=== PATIENT | female | born 1950 | race African-American/Black ===

== ENCOUNTER 2017-02-07 17:02 | Observation (INO) | payer MEDICARE ==
[2017-02-07] MEDS ORDERED: NITROGLYCERIN 50 MG/D5W 250 ML IV PRN (18:23)
[2017-02-07 18:39] LABS: ABSOLUTE EOSINOPHILS # (AUTO) 0.1 10^3/uL (0.0-0.6); ABSOLUTE LYMPHOCYTES (AUTO) 3.9 10^3/uL (0.5-4.7); ABSOLUTE MONOCYTES (AUTO) 0.7 10^3/uL (0.1-1.4); ABSOLUTE NEUT (AUTO) 4.8 10^3/uL (1.7-8.2); BASOPHILS % (AUTO) 0.4 % (0-2); EOSINOPHILS % (AUTO) 1.4 % (0-6); HEMATOCRIT 44.5 % (36.0-47.0); HEMOGLOBIN 14.6 g/dL (12.0-15.5); HGB HCT DIFFERENCE -0.7; LYMPHOCYTES % (AUTO) 40.9 % (13-45); MEAN CORPUSCULAR HEMOGLOBIN 33.4 pg (27.0-33.4); MEAN CORPUSCULAR HGB CONC 32.8 g/dL (32.0-36.0); MEAN CORPUSCULAR VOLUME 102 fl (80-97); RED BLOOD COUNT 4.36 10^6/uL (3.72-5.28); RED CELL DISTRIBUTION WIDTH 13.1 % (11.5-14.0); SEGMENTED NEUTROPHILS % (AUTO) 50.3 % (42-78); WHITE BLOOD COUNT 9.5 10^3/uL (4.0-10.5)
[2017-02-07 18:53] LABS: ALANINE AMINOTRANSFERASE 22 U/L (9-52); ALBUMIN 4.7 g/dL (3.5-5.0); ALKALINE PHOSPHATASE 82 U/L (38-126); ANION GAP 13 (5-19); ASPARTATE AMINO TRANSFERASE 33 U/L (14-36); BILIRUBIN,DIRECT 0.3 mg/dL (0.0-0.4); BILIRUBIN,TOTAL 0.5 mg/dL (0.2-1.3); BLOOD UREA NITROGEN 33 mg/dL (7-20); CALCIUM 10.2 mg/dL (8.4-10.2); CARBON DIOXIDE 28 mmol/L (22-30); CHLORIDE 105 mmol/L (98-107); CREATININE RESULT 1.42 mg/dL (0.52-1.25); GLUCOSE 106 mg/dL (75-110); POTASSIUM 4.1 mmol/L (3.6-5.0); TOTAL PROTEIN 8.7 g/dL (6.3-8.2)
--- NOTE | 2017-02-07 18:58 | RADIOLOGY REPORT (SQ) ---
EXAM DESCRIPTION: CT HEAD WITHOUT COMPLETED DATE/TIME: 02/07/2017 6:36 pm REASON FOR STUDY: hypertense emergency COMPARISON: None. TECHNIQUE: Axial images acquired through the brain without intravenous contrast. Images reviewed wi th bone, brain and subdural windows. Images stored on PACS. All CT scanners at this facility use dose modulation, iterative reconstruction, and/or weight based d osing when appropriate to reduce radiation dose to as low as reasonably achievable (ALARA). [facility]: Dose Right [facility]: CareDose [facility]: Dose Right [facility]: Teradose 4D [facility]: [employer] RADIATION DOSE: 64.61 mGy. LIMITATIONS: None. FINDINGS: VENTRICLES: Normal size and contour. CEREBRUM: No masses. No hemorrhage. No midline shift. Normal siddiqui/white matter differentiation. N o evidence for acute infarction. CEREBELLUM: No masses. No hemorrhage. No alteration of density. No evidence for acute infarction. EXTRAAXIAL SPACES: No fluid collections. No masses. ORBITS AND GLOBE: No intra- or extraconal masses. Normal contour of globe without masses. CALVARIUM: No fracture. PARANASAL SINUSES: No fluid or mucosal thickening. SOFT TISSUES: No mass or hematoma. OTHER: No other significant finding. IMPRESSION: NORMAL BRAIN CT WITHOUT CONTRAST. TECHNICAL DOCUMENTATION: JOB ID: [id number] Quality ID # [id number]: Final reports with documentation of one or more dose reduction techniques (e.g., Au tomated exposure control, adjustment of the mA and/or kV according to patient size, use of iterative reconstruction technique) 2010 [employer]- All Rights Reserved
--- NOTE | 2017-02-07 22:32 | RADIOLOGY REPORT (SQ) ---
EXAM DESCRIPTION: U/S RETROPERITON LTD COMPLETED DATE/TIME: 02/07/2017 10:17 pm REASON FOR STUDY: acute kidney injury COMPARISON: None. TECHNIQUE: Dynamic and static grayscale images acquired of the kidneys and bladder and recorded on P ACS. Additional selected color Doppler and spectral images recorded. LIMITATIONS: None. FINDINGS: RIGHT KIDNEY: The right kidney measures 8.9 cm in length. Normal echogenicity. No yue id or suspicious masses. No hydronephrosis. No calcifications. LEFT KIDNEY: The left kidney measures 9.3 cm in length. Normal echogenicity. No solid or suspici ous masses. No hydronephrosis. No calcifications. BLADDER: No masses. OTHER FINDINGS: No other significant finding. IMPRESSION: NORMAL RENAL AND BLADDER ULTRASOUND. TECHNICAL DOCUMENTATION: JOB ID: [id number] [employer]- All Rights Reserved
[2017-02-07] MEDS ORDERED: CLONAZEPAM 1 MG TABLET PO ONE (23:00)
[2017-02-07] MEDS ORDERED: FAMOTIDINE 20 MG TABLET PO ONE (23:00)
[2017-02-07] MEDS ORDERED: METOPROLOL TARTRATE 50 MG TABLET PO ONE (23:00)
[2017-02-07] MEDS: OXYCODONE-ACETAMINOPHEN 5-325 MG TABLET PO PRN (23:54)
[2017-02-08 00:45] LABS: APPEARANCE,URINE CLEAR; BILIRUBIN,URINE NEGATIVE (NEGATIVE); GLUCOSE, URINE NEGATIVE (NEGATIVE); KETONES,URINE NEGATIVE (NEGATIVE); LEUKOCYTE ESTERASE,URINE NEGATIVE (NEGATIVE); NITRITE,URINE NEGATIVE (NEGATIVE); PROTEIN,URINE NEGATIVE (NEGATIVE); URINE SPECIFIC GRAVITY 1.008; UROBILINOGEN,URINE NEGATIVE mg/dL (<2.0)
[2017-02-08 01:16] LABS: URINE CREATININE 27.1 mg/dL (15-278); URINE PROTEIN 10.4 mg/dL (<12)
[2017-02-08 08:14] LABS: ANION GAP 11 (5-19); BLOOD UREA NITROGEN 30 mg/dL (7-20); CALCIUM 9.7 mg/dL (8.4-10.2); CARBON DIOXIDE 31 mmol/L (22-30); CHLORIDE 106 mmol/L (98-107); GLUCOSE 89 mg/dL (75-110); POTASSIUM 4.3 mmol/L (3.6-5.0); SODIUM 147.6 mmol/L (137-145)
--- NOTE | 2017-02-08 09:11 | EKG REPORT ---
SEVERITY:- NORMAL ECG - SINUS RHYTHM : Confirmed by: Huma Marinelli MD 08-Feb-2017 09:10:23
[2017-02-08] MEDS: OXYCODONE-ACETAMINOPHEN 5-325 MG TABLET PO PRN (09:53)
[2017-02-08] MEDS ORDERED: LORATADINE 10 MG TABLET PO SCH (10:00)
[2017-02-08] MEDS ORDERED: CLONAZEPAM 1 MG TABLET PO SCH (10:00)
[2017-02-08] MEDS ORDERED: FUROSEMIDE 40 MG TABLET PO SCH (10:00)
[2017-02-08] MEDS ORDERED: PAROXETINE HCL 20 MG TABLET PO SCH (10:00)
[2017-02-08] MEDS ORDERED: LEVOTHYROXINE SODIUM 0.075 MG TABLET PO SCH (10:00)
[2017-02-08] MEDS ORDERED: VALSARTAN 160 MG TABLET PO SCH (10:00)
[2017-02-08] MEDS ORDERED: METOPROLOL TARTRATE 50 MG TABLET PO SCH (10:00)
[2017-02-08 12:46] VITALS: BP 120/60
[2017-02-08] MEDS ORDERED: BUTALB/ACETAMINOPHEN/CAFFEINE 1 TAB EACH PO PRN (14:28)
--- NOTE | 2017-02-08 15:36 | PDOC H&P ---
History of Present Illness Admission Date/PCP: 02/07/17 17:02 YUKO DUMONT MD History of Present Illness: HENRIQUE OSULLIVAN is a 66 year old female, she has a history of hypertension, she came to the office with multiple complaints including headache, uncontrolled blood pressure, she was evaluated in the office, the blood pressure recorded was 180 systolic. When she arrived in the office, the initial blood pressure recorded was 160 systolic but the blood pressure increased to 180 systolic in about 60 minutes duration, because of the blood pressure ,headache she was admitted directly for evaluation of hypertensive emergency. CT of the head was done and it was negative. The metabolic panel showed serum creatinine of 1.42 there was associated hyperproteinemia. When patient arrived on the floor the blood pressure actually dropped to 140 systolic. She did not require intravenous antihypertensive medication. She was treated with p.o. medication for the control blood pressure. The repeat Metabolic panel revealed serum creatinine 1.2. The kidney ultrasound was normal. There is no hydronephrosis, the kidney size was normal. Past Medical History Cardiac Medical History: Reports: Hypertension - medicated Pulmonary Medical History: Reports: Asthma - last episode december 2013 in [place]/ medicated prn Past Surgical History Past Surgical History: Reports: Hysterectomy Social History Smoking Status: Never Smoker Frequency of Alcohol Use: None Hx Recreational Drug Use: No Drugs: None Hx Prescription Drug Abuse: No Family History Family History: Reviewed & Not Pertinent Parental Family History Reviewed: Yes Children Family History Reviewed: Yes Sibling(s) Family History Reviewed.: Yes Medication/Allergy Home Medications: Clonazepam [Klonopin] 0.5 mg PO Q12 02/07/17 Furosemide [Lasix] 40 mg PO DAILY 02/07/17 Levothyroxine Sodium [Synthroid 0.075 mg Tablet] 0.075 mg PO ACBRKFST 02/07/17 Loratadine [Claritin 10 mg Tablet] 10 mg PO DAILY 02/07/17 Metoprolol Tartrate [Lopressor 50 mg Tablet] 50 mg PO Q12 02/07/17 Oxycodone HCl/Acetaminophen [Endocet 5-325 Tablet] 1 tab PO Q6HP PRN 02/07/17 Paroxetine HCl [Paxil] 10 mg PO DAILY 02/07/17 Ranitidine HCl [Zantac 150 mg Tablet] 150 mg PO BID 02/07/17 Valsartan [Diovan 160 mg Tablet] 160 mg PO DAILY 02/07/17 Butalb/Acetaminophen/Caffeine [Fioricet (50-325-40 mg) Tablet] 1 tab PO Q4HP PRN #60 each 02/08/17 Allergies/Adverse Reactions: milnacipran HCl [From Savella] Allergy (Intermediate, Verified 04/09/14 15:25) elevated bp ofloxacin [From Floxin] Allergy (Verified 04/15/14 08:53) sulfur [From Sulfur-8] Adverse Reaction (Unverified 04/09/14 15:25) G6PD blood disorder Review of Systems Constitutional: PRESENT: headache(s) Cardiovascular: ABSENT: chest pain, dyspnea on exertion, edema, orthropnea, palpitations Respiratory: ABSENT: cough, hemoptysis Gastrointestinal: ABSENT: abdominal pain, constipation, diarrhea, hematemesis, hematochezia, nausea, vomiting Genitourinary: ABSENT: dysuria, hematuria Musculoskeletal: ABSENT: joint swelling Integumentary: ABSENT: rash, wounds Neurological: ABSENT: abnormal gait, abnormal speech, confusion, dizziness, focal weakness, syncope Psychiatric: PRESENT: anxiety Hematologic/Lymphatic: ABSENT: easy bleeding, easy bruising, lymphadenopathy Physical Exam Vital Signs: Temp Pulse Resp BP Pulse Ox 98.2 F 71 18 120/60 95 02/08/17 14:52 02/08/17 14:52 02/08/17 14:52 02/08/17 14:52 02/08/17 14:52 Intake & Output 02/07/17 02/08/17 02/09/17 06:59 06:59 06:59 Intake Total 400 238 Output Total 600 800 Balance -200 -562 Weight 80.5 kg General appearance: PRESENT: no acute distress, well-developed, well-nourished Head exam: PRESENT: atraumatic, normocephalic Eye exam: PRESENT: conjunctiva pink, EOMI, PERRLA Ear exam: PRESENT: normal external ear exam Mouth exam: PRESENT: moist, tongue midline Neck exam: PRESENT: full ROM Respiratory exam: PRESENT: clear to auscultation seth Cardiovascular exam: PRESENT: RRR, +S1, +S2 Vascular exam: PRESENT: normal capillary refill GI/Abdominal exam: PRESENT: normal bowel sounds, soft Rectal exam: PRESENT: deferred Neurological exam: PRESENT: alert, awake, oriented to person, oriented to place , oriented to time, oriented to situation, CN II-XII grossly intact Psychiatric exam: PRESENT: appropriate affect, normal mood Skin exam: PRESENT: dry, intact, warm Results Laboratory Results: 02/07/17 18:25 02/08/17 07:54 02/07/17 02/07/17 02/07/17 18:25 18:25 23:50 WBC 9.5 RBC 4.36 Hgb 14.6 Hct 44.5 MCV 102 H MCH 33.4 MCHC 32.8 RDW 13.1 Plt Count 237 Seg Neutrophils % 50.3 Lymphocytes % 40.9 Monocytes % 7.0 Eosinophils % 1.4 Basophils % 0.4 Absolute Neutrophils 4.8 Absolute Lymphocytes 3.9 Absolute Monocytes 0.7 Absolute Eosinophils 0.1 Absolute Basophils 0.0 Sodium 146.0 H Potassium 4.1 Chloride 105 Carbon Dioxide 28 Anion Gap 13 BUN 33 H Creatinine 1.42 H Est GFR ( Amer) 45 L Est GFR (Non-Af Amer) 37 L Glucose 106 Calcium 10.2 Total Bilirubin 0.5 AST 33 ALT 22 Alkaline Phosphatase 82 Total Protein 8.7 H Albumin 4.7 Urine Color STRAW Urine Appearance CLEAR Urine pH 5.0 Ur Specific [place] 1.008 Urine Protein NEGATIVE Urine Glucose (UA) NEGATIVE Urine Ketones NEGATIVE Urine Blood NEGATIVE Urine Nitrite NEGATIVE Ur Leukocyte Esterase NEGATIVE Urine WBC (Auto) 1 Urine RBC (Auto) 0 02/08/17 07:54 WBC RBC Hgb Hct MCV MCH MCHC RDW Plt Count Seg Neutrophils % Lymphocytes % Monocytes % Eosinophils % Basophils % Absolute Neutrophils Absolute Lymphocytes Absolute Monocytes Absolute Eosinophils Absolute Basophils Sodium 147.6 H Potassium 4.3 Chloride 106 Carbon Dioxide 31 H Anion Gap 11 BUN 30 H Creatinine 1.20 Est GFR ( Amer) 54 L Est GFR (Non-Af Amer) 45 L Glucose 89 Calcium 9.7 Total Bilirubin AST ALT Alkaline Phosphatase Total Protein Albumin Urine Color Urine Appearance Urine pH Ur Specific [place] Urine Protein Urine Glucose (UA) Urine Ketones Urine Blood Urine Nitrite Ur Leukocyte Esterase Urine WBC (Auto) Urine RBC (Auto) Impressions: Head CT 02/07/17 00:00 IMPRESSION: NORMAL BRAIN CT WITHOUT CONTRAST. Renal Ultrasound 02/07/17 00:00 IMPRESSION: NORMAL RENAL AND BLADDER ULTRASOUND. Assessment & Plan - Diagnosis (1) Hypertensive urgency Is this a current diagnosis for this admission?: YesPlan: She was admitted for observation for evaluation of hypertensive urgency, CT head was negative. she was treated with PO medications with normalization of the blood pressure (2) Acute kidney injury Is this a current diagnosis for this admission?: YesPlan: The serum creatinine was 1.4 on admission, kidney ultrasound was normal subsequent serum creatinine was 1.2 the urinalysis is negative
--- NOTE | 2017-02-08 15:43 | PDOC DISCHARGE SUMMARY ---
General - Admit/Disc Date/PCP Admission Date/Primary Care Provider: 02/07/17 17:02 YUKO DUMONT MD Discharge Date: 02/08/17 - Discharge Diagnosis (1) Hypertensive urgency Is this a current diagnosis for this admission?: Yes (2) Acute kidney injury Is this a current diagnosis for this admission?: Yes - Additional Information Discharge Activity: Activity As Tolerated Home Medications: Clonazepam [Klonopin] 0.5 mg PO Q12 02/07/17 Furosemide [Lasix] 40 mg PO DAILY 02/07/17 Levothyroxine Sodium [Synthroid 0.075 mg Tablet] 0.075 mg PO ACBRKFST 02/07/17 Loratadine [Claritin 10 mg Tablet] 10 mg PO DAILY 02/07/17 Metoprolol Tartrate [Lopressor 50 mg Tablet] 50 mg PO Q12 02/07/17 Oxycodone HCl/Acetaminophen [Endocet 5-325 Tablet] 1 tab PO Q6HP PRN 02/07/17 Paroxetine HCl [Paxil] 10 mg PO DAILY 02/07/17 Ranitidine HCl [Zantac 150 mg Tablet] 150 mg PO BID 02/07/17 Valsartan [Diovan 160 mg Tablet] 160 mg PO DAILY 02/07/17 Butalb/Acetaminophen/Caffeine [Fioricet (50-325-40 mg) Tablet] 1 tab PO Q4HP PRN #60 each 02/08/17 History of Present Illness History of Present Illness: HENRIQUE OSULLIVAN is a 66 year old female, she has a history of hypertension, she came to the office with multiple complaints including headache, uncontrolled blood pressure, she was evaluated in the office, the blood pressure recorded was 180 systolic. When she arrived in the office, the initial blood pressure recorded was 160 systolic but the blood pressure increased to 180 systolic in about 60 minutes duration, because of the blood pressure ,headache she was admitted directly for evaluation of hypertensive emergency. CT of the head was done and it was negative. The metabolic panel showed serum creatinine of 1.42 there was associated hyperproteinemia. When patient arrived on the floor the blood pressure actually dropped to 140 systolic. She did not require intravenous antihypertensive medication. She was treated with p.o. medication for the control blood pressure. The repeat Metabolic panel revealed serum creatinine 1.2. The kidney ultrasound was normal. There is no hydronephrosis, the kidney size was normal. Hospital Course Hospital Course: Patient was admitted for evaluation of hypertensive urgency, CT head was done and it was negative there was associated acute kidney injury with a serum creatinine 1.4, ultrasound was done and was negative subsequent metabolic panel done revealed serum creatinine 1.2. urinalysis was Negative. Physical Exam Vital Signs: Temp Pulse Resp BP Pulse Ox 98.2 F 71 18 120/60 95 02/08/17 14:52 02/08/17 14:52 02/08/17 14:52 02/08/17 14:52 02/08/17 14:52 Intake & Output 02/07/17 02/08/17 02/09/17 06:59 06:59 06:59 Intake Total 400 238 Output Total 600 800 Balance -200 -562 Weight 80.5 kg General appearance: PRESENT: no acute distress, well-developed, well-nourished Head exam: PRESENT: atraumatic, normocephalic Eye exam: PRESENT: conjunctiva pink, EOMI, PERRLA Ear exam: PRESENT: normal external ear exam Mouth exam: PRESENT: moist, tongue midline Neck exam: PRESENT: full ROM Respiratory exam: PRESENT: clear to auscultation seth Cardiovascular exam: PRESENT: RRR, +S1, +S2 Pulses: PRESENT: normal dorsalis pedis pul, +2 pedal pulses bilateral Vascular exam: PRESENT: normal capillary refill GI/Abdominal exam: PRESENT: normal bowel sounds, soft Rectal exam: PRESENT: deferred Neurological exam: PRESENT: alert, awake, oriented to person, oriented to place , oriented to time, oriented to situation, CN II-XII grossly intact Psychiatric exam: PRESENT: appropriate affect, normal mood Skin exam: PRESENT: dry, intact, warm Results Laboratory Results: 02/07/17 18:25 02/08/17 07:54 02/07/17 02/07/17 02/07/17 18:25 18:25 23:50 WBC 9.5 RBC 4.36 Hgb 14.6 Hct 44.5 MCV 102 H MCH 33.4 MCHC 32.8 RDW 13.1 Plt Count 237 Seg Neutrophils % 50.3 Lymphocytes % 40.9 Monocytes % 7.0 Eosinophils % 1.4 Basophils % 0.4 Absolute Neutrophils 4.8 Absolute Lymphocytes 3.9 Absolute Monocytes 0.7 Absolute Eosinophils 0.1 Absolute Basophils 0.0 Sodium 146.0 H Potassium 4.1 Chloride 105 Carbon Dioxide 28 Anion Gap 13 BUN 33 H Creatinine 1.42 H Est GFR ( Amer) 45 L Est GFR (Non-Af Amer) 37 L Glucose 106 Calcium 10.2 Total Bilirubin 0.5 AST 33 ALT 22 Alkaline Phosphatase 82 Total Protein 8.7 H Albumin 4.7 Urine Color STRAW Urine Appearance CLEAR Urine pH 5.0 Ur Specific [place] 1.008 Urine Protein NEGATIVE Urine Glucose (UA) NEGATIVE Urine Ketones NEGATIVE Urine Blood NEGATIVE Urine Nitrite NEGATIVE Ur Leukocyte Esterase NEGATIVE Urine WBC (Auto) 1 Urine RBC (Auto) 0 02/08/17 07:54 WBC RBC Hgb Hct MCV MCH MCHC RDW Plt Count Seg Neutrophils % Lymphocytes % Monocytes % Eosinophils % Basophils % Absolute Neutrophils Absolute Lymphocytes Absolute Monocytes Absolute Eosinophils Absolute Basophils Sodium 147.6 H Potassium 4.3 Chloride 106 Carbon Dioxide 31 H Anion Gap 11 BUN 30 H Creatinine 1.20 Est GFR ( Amer) 54 L Est GFR (Non-Af Amer) 45 L Glucose 89 Calcium 9.7 Total Bilirubin AST ALT Alkaline Phosphatase Total Protein Albumin Urine Color Urine Appearance Urine pH Ur Specific [place] Urine Protein Urine Glucose (UA) Urine Ketones Urine Blood Urine Nitrite Ur Leukocyte Esterase Urine WBC (Auto) Urine RBC (Auto) Impressions: Head CT 02/07/17 00:00 IMPRESSION: NORMAL BRAIN CT WITHOUT CONTRAST. Renal Ultrasound 02/07/17 00:00 IMPRESSION: NORMAL RENAL AND BLADDER ULTRASOUND.
[2017-02-08] MEDS ORDERED: FAMOTIDINE 20 MG TABLET PO SCH (18:00)
[2017-02-08] MEDS ORDERED: (PENDING PHARMACY ID) (Ranitidine Hcl [Zantac 150 Mg Tablet] 150 MG) PO SCH (18:00)
[2017-02-09 16:39] LABS: ALPHA-1-GLOBULIN 0.3 g/dL (0.0-0.4); ALPHA-2-GLOBULIN 3 0.6 g/dL (0.4-1.0); BETA GLOBULIN 1.2 g/dL (0.7-1.3); IMMUNOGLOBULIN A 284 mg/dL (87-352); IMMUNOGLOBULIN G 954 mg/dL (700-1600); IMMUNOGLOBULIN M 40 mg/dL (26-217); MONOCLONAL-SPIKE Not Observed g/dL (Not Observed)
[2017-02-10 14:41] LABS: M-SPIKE % UR Not Observed % (Not Observed)
== END 2017-02-08 15:39 | disposition home or self-care (01) ==
LOC: 3N 17:02 → INTOOBSV 17:02
PROVIDERS: ADMIT Internal Medicine; ATTEND Internal Medicine
DX: I16.0 Hypertensive urgency (principal); N17.9 Acute kidney failure, unspecified; E88.09 Other disorders of plasma-protein metabolism, not elsewhere classified; F41.9 Anxiety disorder, unspecified; Z79.899 Other long term (current) drug therapy; Z90.710 Acquired absence of both cervix and uterus
CPT/HCPCS: 36415 ×2; 84156; 82570; 85025; 80076; 80048 ×2; 81001; 86320; 84166; 76775; 70450; 93005; 93010; G0378 ×2; G0379; A9270 ×10; J3490

== ENCOUNTER 2017-08-18 10:53 | Observation (INO) | payer MEDICARE ==
[2017-08-18 13:30] LABS: ABSOLUTE BASOPHILS # (AUTO) 0.1 10^3/uL (0.0-0.2); ABSOLUTE EOSINOPHILS # (AUTO) 0.1 10^3/uL (0.0-0.6); ABSOLUTE LYMPHOCYTES (AUTO) 2.5 10^3/uL (0.5-4.7); ABSOLUTE MONOCYTES (AUTO) 0.6 10^3/uL (0.1-1.4); ABSOLUTE NEUT (AUTO) 4.7 10^3/uL (1.7-8.2); EOSINOPHILS % (AUTO) 1.5 % (0-6); HEMATOCRIT 42.1 % (36.0-47.0); HEMOGLOBIN 14.6 g/dL (12.0-15.5); LYMPHOCYTES % (AUTO) 31.3 % (13-45); MEAN CORPUSCULAR HEMOGLOBIN 34.3 pg (27.0-33.4); MEAN CORPUSCULAR HGB CONC 34.7 g/dL (32.0-36.0); MEAN CORPUSCULAR VOLUME 99 fl (80-97); MONOCYTES % (AUTO) 7.9 % (3-13); PLATELET COUNT 256 10^3/uL (150-450); RED BLOOD COUNT 4.26 10^6/uL (3.72-5.28); RED CELL DISTRIBUTION WIDTH 12.7 % (11.5-14.0); SEGMENTED NEUTROPHILS % (AUTO) 58.3 % (42-78); TOTAL CELLS COUNTED % (AUTO) 100 %
--- NOTE | 2017-08-18 13:37 | EKG REPORT ---
SEVERITY:- NORMAL ECG - SINUS RHYTHM : Confirmed by: Mulu Ventura 18-Aug-2017 13:36:43
[2017-08-18] MEDS ORDERED: ACETAMINOPHEN 325 MG TABLET PO PRN (13:48)
[2017-08-18 13:55] LABS: ALANINE AMINOTRANSFERASE 28 U/L (9-52); ALBUMIN 4.6 g/dL (3.5-5.0); ALKALINE PHOSPHATASE 84 U/L (38-126); ANION GAP 13 (5-19); ASPARTATE AMINO TRANSFERASE 35 U/L (14-36); BILIRUBIN,DIRECT 0.2 mg/dL (0.0-0.4); BILIRUBIN,TOTAL 0.4 mg/dL (0.2-1.3); BLOOD UREA NITROGEN 19 mg/dL (7-20); CARBON DIOXIDE 30 mmol/L (22-30); CHLORIDE 105 mmol/L (98-107); CREATINE KINASE 57 U/L (30-135); GLUCOSE 92 mg/dL (75-110); LIPASE 101.7 U/L (23-300); POTASSIUM 4.2 mmol/L (3.6-5.0); SODIUM 148.3 mmol/L (137-145); TOTAL PROTEIN 7.8 g/dL (6.3-8.2)
[2017-08-18 14:06] LABS: CREATINE KINASE MB 0.58 ng/mL (<4.55)
[2017-08-18 14:09] LABS: TROPONIN I < 0.012 ng/mL
[2017-08-18 14:10] LABS: FREE T4 (FREE THYROXINE) 1.63 ng/dL (0.78-2.19)
[2017-08-18 14:24] LABS: THYROID STIMULATING HORMONE 0.15 uIU/mL (0.47-4.68)
--- NOTE | 2017-08-18 16:14 | RADIOLOGY REPORT (SQ) ---
EXAM DESCRIPTION: CTA CHEST COMPLETED DATE/TIME: 08/18/2017 3:58 pm REASON FOR STUDY: chest pain COMPARISON: Chest x-ray 07/26/2013 TECHNIQUE: CT scan of the chest performed using helical scanning technique with dynamic intravenous contrast injection. Images reviewed with lung, soft tissue and bone windows. Reconstructed coronal and sagittal MPR images reviewed. Additional 3 dimensional post-processing performed to develop Maximal Intensity Projection images (IN P). All images stored on PACS. All CT scanners at this facility use dose modulation, iterative reconstruction, and/or weight based d osing when appropriate to reduce radiation dose to as low as reasonably achievable (ALARA). [facility]: Dose Right [facility]: CareDose [facility]: Dose Right [facility]: Teradose 4D [facility]: [employer] CONTRAST TYPE AND DOSE: contrast/concentration: Isovue 370.00 mg/ml; Total Contrast Delivered: 67.0 ml; Total Saline Delivered: 81.2 ml Contrast bolus optimized for the pulmonary arteries. Not diagnostic for the aorta. RENAL FUNCTION: Creatinine 1.04 BUN 19 RADIATION DOSE: CT Rad equipment meets quality standard of care and radiation dose reduction techniq ues were employed. CTDIvol: 10.7 - 11.3 mGy. DLP: 392 mGy-cm. . LIMITATIONS: None. FINDINGS: LUNGS AND PLEURA: There is a 7 mm somewhat of a ground-glass opacity in the medial right l lorna image 24 series 4. AORTA AND GREAT VESSELS: No aneurysm. Contrast bolus not optimized for the aorta. HEART: No pericardial effusion. No significant coronary artery calcifications. PULMONARY ARTERIES: No emboli visualized in the main pulmonary arteries or the segmental branches. HILAR AND MEDIASTINAL STRUCTURES: No identified masses or abnormal nodes. HARDWARE: None in the chest. UPPER ABDOMEN: No significant findings. Limited exam. THYROID AND OTHER SOFT TISSUES: No masses. No adenopathy. BONES: No acute or significant finding. 3D MIPS: Confirm above findings. OTHER: No other significant finding. IMPRESSION: 1. There is no evidence of pulmonary embolus. 2. There is 7 mm ground-glass nodule the right lung. COMMENT: Fleischner Criteria for Ground Glass Nodules: >6mm ground glass single nodule: CT 6-12 mo, then CT every 2 yr until 5 yr Quality ID # [id number]: Final reports with documentation of one or more dose reduction techniques (e.g., Au tomated exposure control, adjustment of the mA and/or kV according to patient size, use of iterative reconstruction technique) TECHNICAL DOCUMENTATION: JOB ID: [id number] [employer]- All Rights Reserved
[2017-08-18 16:59] LABS: APPEARANCE,URINE CLEAR; BILIRUBIN,URINE NEGATIVE (NEGATIVE); COLOR,URINE YELLOW; GLUCOSE, URINE NEGATIVE (NEGATIVE); KETONES,URINE NEGATIVE (NEGATIVE); LEUKOCYTE ESTERASE,URINE NEGATIVE (NEGATIVE); NITRITE,URINE NEGATIVE (NEGATIVE); PROTEIN,URINE NEGATIVE (NEGATIVE); URINE SPECIFIC GRAVITY 1.018; UROBILINOGEN,URINE NEGATIVE mg/dL (<2.0)
[2017-08-18 18:43] VITALS: BP 142/75
--- NOTE | 2017-08-18 20:33 | PDOC H&P ---
History of Present Illness Admission Date/PCP: 08/18/17 10:53 YUKO DUMONT MD History of Present Illness: HENRIQUE OSULLIVAN is a 66 year old female, She came to the office today for follow -up she complained of intermittent chest pain, she said about 3 weeks ago she traveled outside [place], she developed acute respiratory distress, with shortness of breath, wheezing and there was associated lower extremity swelling , she took pictures of her legs and she showed me the pictures in the office today. There was tremendous swelling of both lower extremities. A 12-lead EKG was done in the office, it showed sinus rhythm, there was nonspecific T- wave changes, some flattening of the T waves. She was admitted directly from the office into the hospital for evaluation because of chest pain and abnormal EKG. In the hospital a CTA of the chest was done, it was negative for any acute pulmonary embolism there was no aneurysm of the aorta. The first set of cardiac enzymes were negative.She was admitted for observation and evaluation Past Medical History Cardiac Medical History: Reports: Hypertension - medicated Pulmonary Medical History: Reports: Asthma - last episode december 2013 in [place]/ medicated prn Neurological Medical History: Denies: Seizures Psychiatric Medical History: Denies: Depression Past Surgical History Past Surgical History: Reports: Hysterectomy Denies: Amputation, Mastectomy, Pacemaker Social History Smoking Status: Former Smoker Frequency of Alcohol Use: None Hx Recreational Drug Use: No Drugs: None Hx Prescription Drug Abuse: No Family History Family History: Reviewed & Not Pertinent Parental Family History Reviewed: Yes Children Family History Reviewed: Yes Sibling(s) Family History Reviewed.: Yes Medication/Allergy Home Medications: Clonazepam [Klonopin] 0.5 mg PO Q12 02/07/17 Furosemide [Lasix] 40 mg PO DAILY 02/07/17 Levothyroxine Sodium [Synthroid 0.075 mg Tablet] 0.075 mg PO ACBRKFST 02/07/17 Loratadine [Claritin 10 mg Tablet] 10 mg PO DAILY 02/07/17 Metoprolol Tartrate [Lopressor 50 mg Tablet] 50 mg PO Q12 02/07/17 Oxycodone HCl/Acetaminophen [Endocet 5-325 Tablet] 1 tab PO Q6HP PRN 02/07/17 Paroxetine HCl [Paxil] 10 mg PO DAILY 02/07/17 Ranitidine HCl [Zantac 150 mg Tablet] 150 mg PO BID 02/07/17 Valsartan [Diovan 160 mg Tablet] 160 mg PO DAILY 02/07/17 Butalb/Acetaminophen/Caffeine [Fioricet (50-325-40 mg) Tablet] 1 tab PO Q4HP PRN #60 each 02/08/17 Allergies/Adverse Reactions: milnacipran HCl [From Savella] Allergy (Intermediate, Verified 04/09/14 15:25) elevated bp ofloxacin [From Floxin] Allergy (Verified 04/15/14 08:53) sulfur [From Sulfur-8] Adverse Reaction (Unverified 04/09/14 15:25) G6PD blood disorder Review of Systems Constitutional: ABSENT: chills, fever(s), headache(s), weight gain, weight loss Eyes: ABSENT: visual disturbances Ears: ABSENT: hearing changes Cardiovascular: PRESENT: chest pain Respiratory: ABSENT: cough, hemoptysis Gastrointestinal: ABSENT: abdominal pain, constipation, diarrhea, hematemesis, hematochezia, nausea, vomiting Genitourinary: ABSENT: dysuria, hematuria Musculoskeletal: ABSENT: joint swelling Integumentary: ABSENT: rash, wounds Neurological: ABSENT: abnormal gait, abnormal speech, confusion, dizziness, focal weakness, syncope Psychiatric: ABSENT: anxiety, depression, homidical ideation, suicidal ideation Endocrine: ABSENT: cold intolerance, heat intolerance, menstrual abnormalities, polydipsia, polyuria Hematologic/Lymphatic: ABSENT: easy bleeding, easy bruising, lymphadenopathy Physical Exam Vital Signs: Temp Pulse Resp BP Pulse Ox 98.3 F 76 18 142/75 H 99 08/18/17 18:41 08/18/17 18:41 08/18/17 18:41 08/18/17 18:41 08/18/17 18:41 Intake & Output 08/17/17 08/18/17 08/19/17 06:59 06:59 06:59 Intake Total 232 Output Total 600 Balance -368 Weight 81.4 kg General appearance: PRESENT: no acute distress, well-developed, well-nourished Head exam: PRESENT: atraumatic, normocephalic Eye exam: PRESENT: conjunctiva pink, EOMI, PERRLA. ABSENT: scleral icterus Ear exam: PRESENT: normal external ear exam Mouth exam: PRESENT: moist, tongue midline Neck exam: PRESENT: full ROM Respiratory exam: PRESENT: clear to auscultation seth Cardiovascular exam: PRESENT: RRR, +S1, +S2 Pulses: PRESENT: normal dorsalis pedis pul, +2 pedal pulses bilateral Vascular exam: PRESENT: normal capillary refill GI/Abdominal exam: PRESENT: normal bowel sounds, soft Rectal exam: PRESENT: deferred Neurological exam: PRESENT: alert, awake, oriented to person, oriented to place , oriented to time, oriented to situation, CN II-XII grossly intact Psychiatric exam: PRESENT: appropriate affect, normal mood Skin exam: PRESENT: dry, intact, warm Results Laboratory Results: 08/18/17 13:13 08/18/17 13:13 08/18/17 08/18/17 08/18/17 13:13 13:13 13:13 WBC 8.0 RBC 4.26 Hgb 14.6 Hct 42.1 MCV 99 H MCH 34.3 H MCHC 34.7 RDW 12.7 Plt Count 256 Seg Neutrophils % 58.3 Lymphocytes % 31.3 Monocytes % 7.9 Eosinophils % 1.5 Basophils % 1.0 Absolute Neutrophils 4.7 Absolute Lymphocytes 2.5 Absolute Monocytes 0.6 Absolute Eosinophils 0.1 Absolute Basophils 0.1 Sodium 148.3 H Potassium 4.2 Chloride 105 Carbon Dioxide 30 Anion Gap 13 BUN 19 Creatinine 1.04 Est GFR ( Amer) > 60 Est GFR (Non-Af Amer) 53 L Glucose 92 Calcium 10.0 Total Bilirubin 0.4 AST 35 ALT 28 Alkaline Phosphatase 84 Total Protein 7.8 Albumin 4.6 Lipase 101.7 TSH 0.15 L Free T4 1.63 Urine Color Urine Appearance Urine pH Ur Specific [place] Urine Protein Urine Glucose (UA) Urine Ketones Urine Blood Urine Nitrite Ur Leukocyte Esterase Urine WBC (Auto) Urine RBC (Auto) 08/18/17 16:19 WBC RBC Hgb Hct MCV MCH MCHC RDW Plt Count Seg Neutrophils % Lymphocytes % Monocytes % Eosinophils % Basophils % Absolute Neutrophils Absolute Lymphocytes Absolute Monocytes Absolute Eosinophils Absolute Basophils Sodium Potassium Chloride Carbon Dioxide Anion Gap BUN Creatinine Est GFR ( Amer) Est GFR (Non-Af Amer) Glucose Calcium Total Bilirubin AST ALT Alkaline Phosphatase Total Protein Albumin Lipase TSH Free T4 Urine Color YELLOW Urine Appearance CLEAR Urine pH 6.0 Ur Specific [place] 1.018 Urine Protein NEGATIVE Urine Glucose (UA) NEGATIVE Urine Ketones NEGATIVE Urine Blood NEGATIVE Urine Nitrite NEGATIVE Ur Leukocyte Esterase NEGATIVE Urine WBC (Auto) 1 Urine RBC (Auto) 1 08/18/17 08/18/17 13:13 13:13 Creatine Kinase 57 CK-MB (CK-2) 0.58 Troponin I < 0.012 Impressions: Chest/Abdomen CTA 08/18/17 12:14 IMPRESSION: 1. There is no evidence of pulmonary embolus. 2. There is 7 mm ground-glass nodule the right lung. Assessment & Plan - Diagnosis (1) Chest pain Qualifiers: Chest pain type: unspecified Qualified Code(s): R07.9 - Chest pain, unspecified Is this a current diagnosis for this admission?: Yes Plan: Patient was admitted for observation and evaluation, she was scheduled for outpatient stress test.
--- NOTE | 2017-08-19 06:13 | XCELERA REPORT ---
[address] [address] Transthoracic Echocardiogram Report Name: HENRIQUE OSULLIVAN Age: 66 yrs Gender: Female : 1950 Patient Status: Inpatient Patient Location: [address] [place] [address] Study Date: 08/18/2017 03:07 PM Height: 62 in Weight: 178 lb BSA: 1.8 m2 Procedure: A complete two-dimensional transthoracic echocardiogram was performed (2D, M-mode, spectral and color flow Doppler). The study was technically adequate with some images being suboptimal in quality. Reason For Study: chest pain Ordering Physician: YUKO DUMONT Performed By: Linda Mcdermott Interpretation Summary The left ventricular ejection fraction is normal. Doppler measurements suggest pseudonormalized left ventricular relaxation, which is associated with grade II/IV or mild to moderate diastolic dysfunction There is mild concentric left ventricular hypertrophy. The right ventricular systolic function is normal. The right atrium is normal. The left atrial size is normal. There is no mitral valve stenosis. There is a trace amount of mitral regurgitation There is no aortic valve stenosis No aortic regurgitation is present. There is a trace or physiologic amount of tricuspid regurgitation Tricuspid regurgitation jet envelope not well defined to measure RV systolic pressure accurately. The aortic root is not well visualized but is probably normal size. The inferior vena cava appeared normal and decreased > 50% with respiration (RAP 5-10 mmHg) Minimal pericardial effusion. MMode/2D Measurements & Calculations RVDd: 2.6 cm LVIDd: 4.0 cm FS: 38.2 % Ao root diam: 2.6 cm IVSd: 1.1 cm LVIDs: 2.5 cm EDV(Teich): 69.1 ml LVPWd: 1.1 cm ESV(Teich): 21.4 ml Ao root area: 5.3 cm2 EF(Teich): 69.0 % LA dimension: 2.9 cm LVOT diam: 1.8 cm LVOT area: 2.5 cm2 Doppler Measurements & Calculations MV E max otis: MV P1/2t max otis: Ao V2 max: LV V1 max P.9 cm/sec 78.3 cm/sec 127.3 cm/sec 4.1 mmHg MV A max otis: MV P1/2t: 42.5 msec Ao max PG: LV V1 max: 89.1 cm/sec MVA(P1/2t): 5.2 cm2 6.5 mmHg 101.8 cm/sec MV E/A: 0.87 MV dec slope: LOVE(V,D): 2.0 cm2 539.6 cm/sec2 PA V2 max: 72.9 cm/sec PA max P.1 mmHg Left Ventricle The left ventricle is grossly normal size. There is mild concentric left ventricular hypertrophy. The left ventricular ejection fraction is normal. Doppler measurements suggest pseudonormalized left ventricular relaxation, which is associated with grade II/IV or mild to moderate diastolic dysfunction. Wall motion cannot be accurately commented on, but no definite regional wall motion abnormalities noted. Right Ventricle The right ventricle is grossly normal size. There is normal right ventricular wall thickness. The right ventricular systolic function is normal. Atria The right atrium is normal. The left atrial size is normal. Interarterial septum not well visualized and not well dopplered. Cannot comment on ASD/PFO presence. Mitral Valve The mitral valve is grossly normal. There is no mitral valve stenosis. There is a trace amount of mitral regurgitation. Aortic Valve The aortic valve is grossly normal. There is no aortic valve stenosis. No aortic regurgitation is present. Tricuspid Valve The tricuspid valve is not well visualized secondary to technical limitations. There is no tricuspid stenosis. There is a trace or physiologic amount of tricuspid regurgitation. Tricuspid regurgitation jet envelope not well defined to measure RV systolic pressure accurately. Pulmonic Valve The pulmonic valve is not well visualized. Great Vessels The aortic root is not well visualized but is probably normal size. The inferior vena cava appeared normal and decreased > 50% with respiration (RAP 5-10 mmHg). Effusions Minimal pericardial effusion. : YUKO DUMONT > Mulu Ventura
== END 2017-08-18 19:00 | disposition home or self-care (01) ==
LOC: 3S 10:53 → INTOOBSV 10:53
PROVIDERS: ADMIT Internal Medicine; ATTEND Internal Medicine
DX: R07.9 Chest pain, unspecified (principal); R91.1 Solitary pulmonary nodule; R94.31 Abnormal electrocardiogram [ECG] [EKG]; I10 Essential (primary) hypertension; Z79.899 Other long term (current) drug therapy; Z87.891 Personal history of nicotine dependence
CPT/HCPCS: 36415; 87086; 84439; 82553; 82550; 83690; 84443; 85025; 80053; 81001; 84484; 85379; 93306; 71275; 93005; 93010; G0378; G0379; A9270

== ENCOUNTER → 2017-08-31 | Outpatient (CLI) | payer MEDICARE ==
[~2017-08-31] MED LIST: AMINOPHYLLINE INJ/PF 250 MG/10 ML SDV IV ONE; REGADENOSON INJ 0.4 MG/5 ML DISP.SYRIN IV ONE
--- NOTE | 2017-09-01 10:13 | DRAGON STRESS TEST REPORT ---
INTRAVENOUS LEXISCAN CARDIOLITE STRESS TEST USING SINGLE PHOTON EMMISION COMPUTERIZED TOMOGRAPHIC. DATE OF PROCEDURE: August 31, 2017 INDICATION : Chest pain CARDIAC RISK FACTORS: Hypertension RESTING EKG: Sinus rhythm without any baseline ST-T wave changes STRESS EKG: No significant changes noted with LexiScan bolus REASON FOR TERMINATION: Protocol. PROCEDURE REPORT: Baseline heart rate 90 beats per minute with blood pressure of 142/72. Patient had no significant complaints. Heart rate at 2 minutes post bolus 101 with a blood pressure of 154/68. 3 minutes post bolus heart rate 98 with blood pressure of 160/68. No significant EKG changes were noted. Patient had no significant complaints during the procedure or postprocedure. Patient injected with Aminophyllin 75 mg at 3 minutes or later after Lexiscan bolus. CONCLUSIONS: Normal EKG and hemodynamic response to IV LexiScan. NUCLEAR DATA: At rest the patient was given 10.81 millicuries of technetium 99 sestamibi injected intravenously. As per protocol rest gated SPECT images were obtained. Subsequently the patient was given intravenous LexiScan at a dose of 0.4 mg in 5 mL intravenously, followed by flush with normal saline. Subsequently the stress dose of 36.5 millicuries of technetium 99 sestamibi was injected intravenously. As per protocol stress gated images were obtained. NUCLEAR INTERPRETATION: Both raw and processed data were used for interpretation. Visual, qualitative, computer-generated quantitative data was used. There was good myocardial uptake of technetium compound. Motion artifact and soft tissue attenuations were noted. Increased visceral uptake was noted. No definitive areas of transient perfusion defect noted. No definitive areas of fixed perfusion defect or scars noted. EKG gated imaging showed LV EF at 78 %, rest and stress gated EF similar visually. T. I D. ratio was 0.85. Lung heart ratio noted to be within normal limits 0.31. No significant extracardiac and abnormal radiotracer activities were noted. RV free wall uptake was noted to be WNL. IMPRESSION: Also refer to comments under nuclear interpretation. Also test results needs to be interpreted in the context of pretest probability. 1. There is no definitive scintigraphic evidence of LexiScan induced myocardial ischemia. 2. There is no definitive scintigraphic evidence of myocardial infarction/scar. 3. EKG gated imaging shows left ventricular ejection fraction of approximately 78 %. 4. Clinical correlation requested as occasionally single vessel disease or balanced ischemia could be missed. In approximately 10% of the cases Lexiscan may not cause adequate vasodilatory stress. RECOMMENDATIONS: Aggressive risk factor modification, medical therapy. Clinical correlation with echocardiogram derived ejection fraction. Inability to exercise by itself can lead to increased cardiovascular event risks. Consider cardiology consultation and or follow-up if clinically indicated. I AM AVAILABLE FOR CARDIOLOGY CONSULTATION AND FOLLOWUP IF REQUESTED BY PMD Mulu Ventura M.D., [facility] [employer] Development Technician drilling supervisor, Board certified in cardiovascular diseases, Nuclear cardiology, Echocardiography Cardiac CT and cardiac MRI Ph. [phone] [facility]
== END ==
LOC: RAD 07:34
PROVIDERS: ATTEND Internal Medicine
DX: R07.9 Chest pain, unspecified (principal)
CPT/HCPCS: 93017; 78452; A9500; J2785; J0280; Q9969

== ENCOUNTER 2017-11-06 14:35 | Emergency (ER) | payer MEDICARE ==
--- NOTE | 2017-11-06 16:08 | ER Document Report ---
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 She states she feels better now. She states at the time she had a headache. She states she has had trouble and been hospitalized twice with malignant hypertension. She states he recently took her off 3 of her 4 blood pressure medicines because her blood pressure had become too low. She states currently she feels fine has no significant symptoms. No current chest pain or headache. Earlier she had a mild diffuse headache that did not radiate. Nothing made it better or worse. It lasted several hours. TRAVEL OUTSIDE OF THE [place] IN LAST 30 DAYS: No - Related Data Allergies/Adverse Reactions: milnacipran HCl [From Savella] Allergy (Intermediate, Verified 11/06/17 14:37) elevated bp ofloxacin [From Floxin] Allergy (Verified 11/06/17 14:37) sulfur [From Sulfur-8] Adverse Reaction (Verified 11/06/17 14:37) G6PD blood disorder Past Medical History - General Information source: Patient - Social History Smoking Status: Never Smoker Chew tobacco use (# tins/day): No Frequency of alcohol use: None Drug Abuse: None Family History: Reviewed & Not Pertinent Patient has suicidal ideation: No Patient has homicidal ideation: No - Past Medical History Cardiac Medical History: Reports: Hx Hypertension - medicated Pulmonary Medical History: Reports: Hx Asthma - last episode december 2013 in [place]/ medicated prn Neurological Medical History: Denies: Hx Cerebrovascular Accident, Hx Seizures Renal/ Medical History: Denies: Hx Peritoneal Dialysis GI Medical History: Denies: Hx Ulcer Psychiatric Medical History: Denies: Hx Depression Past Surgical History: Reports: Hx Cholecystectomy, Hx Hysterectomy, Hx Orthopedic Surgery - laminectomy L4-L5. Denies: Hx Mastectomy, Hx Open Heart Surgery, Hx Pacemaker - Immunizations Hx Pneumococcal Vaccination: 09/04/14 Review of Systems - Review of Systems Constitutional: denies: Chills, Fever Cardiovascular: denies: Chest pain, Palpitations Respiratory: denies: Cough, Short of breath Physical Exam - Vital signs Vitals: Temp Pulse Resp BP Pulse Ox 98.5 F 68 16 187/84 H 96 11/06/17 14:50 11/06/17 14:50 11/06/17 14:50 11/06/17 14:50 11/06/17 14:50 Interpretation: Hypertensive - General General appearance: Appears well, Alert - HEENT Head: Normocephalic, Atraumatic Eyes: Normal Pupils: PERRL - Respiratory Respiratory status: No respiratory distress Chest status: Nontender Breath sounds: Normal Chest palpation: Normal - Cardiovascular Rhythm: Regular Heart sounds: Normal auscultation Murmur: No - Abdominal Inspection: Normal Distension: No distension Bowel sounds: Normal Tenderness: Nontender Organomegaly: No organomegaly - Back Back: Normal, Nontender - Extremities General upper extremity: Normal inspection, Nontender, Normal color, Normal ROM , Normal temperature General lower extremity: Normal inspection, Nontender, Normal color, Normal ROM , Normal temperature, Normal weight bearing. No: Jackie's sign - Neurological Neuro grossly intact: Yes Cognition: Normal Orientation: AAOx4 [place] Coma Scale Eye Opening: Spontaneous Nestor Coma Scale Verbal: Oriented [place] Coma Scale Motor: Obeys Commands [place] Coma Scale Total: 15 Speech: Normal Motor strength normal: LUE, RUE, LLE, RLE Sensory: Normal - Psychological Associated symptoms: Normal affect, Normal mood - Skin Skin Temperature: Warm Skin Moisture: Dry Skin Color: Normal Course - Vital Signs Vital signs: Temp Pulse Resp BP Pulse Ox 98.5 F 68 16 187/84 H 96 11/06/17 14:50 11/06/17 14:50 11/06/17 14:50 11/06/17 14:50 11/06/17 14:50 Discharge - Discharge Clinical Impression: Uncontrolled hypertension Condition: Stable Disposition: HOME, SELF-CARE Instructions: High Blood Pressure, Requiring Treatment (OM) Prescriptions: Hydrochlorothiazide 25 mg PO DAILY #30 tablet Forms: Elevated Blood Pressure Referrals: YUKO DUMONT MD [Primary Care Provider] - Follow up as needed
[2017-11-06 16:15] VITALS: BP 186/76
== END 2017-11-06 16:15 | disposition home or self-care (01) ==
LOC: ER 14:35
DX: I10 Essential (primary) hypertension (principal); Z79.899 Other long term (current) drug therapy; J45.909 Unspecified asthma, uncomplicated; Z88.6 Allergy status to analgesic agent; Z88.1 Allergy status to other antibiotic agents
CPT/HCPCS: 99283

== ENCOUNTER → 2018-10-04 | Outpatient (CLI) | payer MEDICARE ==
--- NOTE | 2018-10-04 09:55 | WOMENS IMAGING REPORT ---
EXAM DESCRIPTION: BONE DENSITY HIP/SPINE COMPLETED DATE/TIME: 10/04/2018 9:40 am REASON FOR STUDY: ROTUINE 3D BILATERAL SCREENING,Z12.31, M81.0 AGE RELATED OSTEOPOROSIS WITHO Z12.31 ENCNTR SCREEN MAMMOGRAM FOR MALIGNANT NEOPLASM OF GLENDY M81.0 AGE-RELATED OSTEOPOROSIS W/O CURRENT P ATHOLOGICAL FRAC COMPARISON: None. TECHNIQUE: Dual-Energy X-ray Absorptiometry (DEXA) of the left forearm and Hip. LIMITATIONS: None. FINDINGS: LEFT FOREARM: The bone mineral density (BMD) measured left distal radius and ulna in the AP projection correlates w ith a T-score of -1.0, which is normal as defined by the World Health Organization. HIP: The bone mineral density (BMD) measured in the left femoral neck at the hip correlates with a T-score of -1.5, which is osteopenic as defined by the World Health Organization. IMPRESSION: 1. LEFT FOREARM: Normal 2. HIP: Osteopenic COMMENT: The World Health Organization defines low BMD as follows: T-score: Normal: Greater than -1.0 Osteopenia: Between -1.0 and -2.5 Osteoporosis: Less than -2.5 without fractures Established osteoporosis: Less than -2.5 with fractures In general, you may wish to consider: Diagnosis Treatment Follow-up DEXA Normal BMD Prevention 2-3 years Osteopenia Prevention/Therapy 1-2 years Osteoporosis Therapy Yearly TECHNICAL DOCUMENTATION: JOB ID: [id number]- All Rights Reserved Reading location - IP/workstation name: [email or web address]
--- NOTE | 2018-10-04 09:57 | WOMENS IMAGING REPORT ---
EXAM DESCRIPTION: 3D SCREENING MAMMO BILAT COMPLETED DATE/TIME: 10/04/2018 9:40 am REASON FOR STUDY: ROTUINE 3D BILATERAL SCREENING,Z12.31, Z12.31 ENCNTR SCREEN MAMMOGRAM FOR MALIGNA NT NEOPLASM OF GLENDY M81.0 AGE-RELATED OSTEOPOROSIS W/O CURRENT PATHOLOGICAL FRAC COMPARISON: 2014 TECHNIQUE: Standard craniocaudal and mediolateral oblique views of each breast recorded using digita l acquisition and breast tomosynthesis. LIMITATIONS: None. FINDINGS: Findings present which are benign by mammographic criteria. No suspicious masses, calcifi cations or architectural distortion. Pertinent benign findings: Stable benign bilateral breast parenchymal calcifications Read with the assistance of CAD. .[facility] - R2 Cenova Version 1.3 .[facility] - R2 Cenova Version 2.1 .[facility] - R2 Cenova Version 2.4 .[facility] - R2 Cenova Version 2.4 .[facility] - R2 Life Coach Version 9.2 Benign mammographic findings may include one or more of the following: Smooth masses, popcorn/rim/co arse calcifications, asymmetries, post-procedure changes, and lesions with long-standing stability. IMPRESSION: BENIGN MAMMOGRAPHIC FINDINGS. BIRADS 2 BREAST DENSITY: c. The breasts are heterogeneously dense, which may obscure small masses. BIRAD: 2 BENIGN FINDING(S) RECOMMENDATION: RECOMMENDATION: ROUTINE SCREENING COMMENT: The patient has been notified of the results by letter per MQSA requirements. Additional no tification policies are in place for contacting patient with suspicious or incomplete findings. Quality ID #[id number]: The [employer] recommends an annual screening mammogram for women aged 40 years or over. This facility utilizes a reminder system to ensure that all patients receive reminder letters, and/or direct phone calls for appointments. This includes reminders for routine scr eening mammograms, diagnostic mammograms, or other Breast Imaging Interventions when appropriate. Th is patient will be placed in the appropriate reminder system. The [employer] (ACR) has developed recommendations for screening MRI of the breast s in certain patient populations, to be used in conjunction with mammography. Breast MRI surveillanc e may be appropriate for women with more than 20% lifetime risk of developing breast cancer as deter mined by genetic testing, significant family history of the disease, or history of mantle radiation f or Hodgkins Disease. ACR Practice Guidelines 2008. DBT Technology DBT is a type of tomographic mammography. With conventional mammography, overlapping breast tissue ma y make lesions difficult to detect, even with good compression. DBT uses an x-ray tube that rotates a round the breast, taking images at different angles. These images are then combined to create thin sl ices of the breast that the radiologist can view as a 3D reconstruction. The HoloBBE unit can perform full-field digital mammograms (2D imaging); or DBT (3D imaging); or both, in a combination mode that quickly performs both the mammogram and the tomosynthesis scan while the breast is still compressed. PQRS 6045F: Fluoroscopic imaging is not utilized for breast tomosynthesis. TECHNICAL DOCUMENTATION: FINDING NUMBER: (1) ASSESSMENT: (1) JOB ID: [id number] [employer]- All Rights Reserved Reading location - IP/workstation name: [email or web address]
== END ==
LOC: WI 09:17
PROVIDERS: ATTEND Internal Medicine
DX: Z12.31 Encounter for screening mammogram for malignant neoplasm of breast (principal); M81.0 Age-related osteoporosis without current pathological fracture
CPT/HCPCS: 77063; 77067; 77080

== ENCOUNTER → 2019-04-18 | Outpatient (CLI) | payer MEDICARE ==
[2019-04-18 11:55] LABS: ABSOLUTE BASOPHILS # (AUTO) 0.1 10^3/uL (0.0-0.2); ABSOLUTE EOSINOPHILS # (AUTO) 0.1 10^3/uL (0.0-0.6); ABSOLUTE LYMPHOCYTES (AUTO) 2.7 10^3/uL (0.5-4.7); ABSOLUTE MONOCYTES (AUTO) 0.6 10^3/uL (0.1-1.4); ABSOLUTE NEUT (AUTO) 3.2 10^3/uL (1.7-8.2); BASOPHILS % (AUTO) 1.3 % (0-2); EOSINOPHILS % (AUTO) 1.3 % (0-6); HEMATOCRIT 41.3 % (36.0-47.0); HEMOGLOBIN 14.4 g/dL (12.0-15.5); LYMPHOCYTES % (AUTO) 40.2 % (13-45); MEAN CORPUSCULAR HEMOGLOBIN 33.8 pg (27.0-33.4); MEAN CORPUSCULAR HGB CONC 34.9 g/dL (32.0-36.0); MEAN CORPUSCULAR VOLUME 97 fl (80-97); MONOCYTES % (AUTO) 9.5 % (3-13); PLATELET COUNT 264 10^3/uL (150-450); RED BLOOD COUNT 4.27 10^6/uL (3.72-5.28); SEGMENTED NEUTROPHILS % (AUTO) 47.7 % (42-78); TOTAL CELLS COUNTED % (AUTO) 100 %; WHITE BLOOD COUNT 6.7 10^3/uL (4.0-10.5)
[2019-04-18 12:10] LABS: ALBUMIN 4.5 g/dL (3.5-5.0); ANION GAP 8 (5-19); BLOOD UREA NITROGEN 25 mg/dL (7-20); CALCIUM 10.2 mg/dL (8.4-10.2); CARBON DIOXIDE 32 mmol/L (22-30); CHLORIDE 101 mmol/L (98-107); GLUCOSE 92 mg/dL (75-110)
[2019-04-18 12:11] LABS: APPEARANCE,URINE SLIGHTLY-CLOUDY; BILIRUBIN,URINE NEGATIVE (NEGATIVE); COLOR,URINE YELLOW; GLUCOSE, URINE NEGATIVE (NEGATIVE); KETONES,URINE NEGATIVE (NEGATIVE); LEUKOCYTE ESTERASE,URINE TRACE (NEGATIVE); NITRITE,URINE NEGATIVE (NEGATIVE); PROTEIN,URINE NEGATIVE (NEGATIVE); URINE SPECIFIC GRAVITY 1.021
== END ==
LOC: OD 11:08
PROVIDERS: ATTEND Internal Medicine Nephrology
DX: I12.9 Hypertensive chronic kidney disease with stage 1 through stage 4 chronic kidney disease, or unspecified chronic kidney disease (principal); N18.3 Chronic kidney disease, stage 3 (moderate)
CPT/HCPCS: 36415; 80069; 81001; 83970; 85025

== ENCOUNTER → 2019-07-05 | Outpatient (CLI) | payer MEDICARE ==
--- NOTE | 2019-07-05 14:54 | RADIOLOGY REPORT (SQ) ---
EXAM DESCRIPTION: KNEE BILAT AP UPRIGHT COMPLETED DATE/TIME: 07/05/2019 2:30 pm REASON FOR STUDY: FALL W10.8XXA FALL (ON) (FROM) OTHER STAIRS AND STEPS, INITIAL EN COMPARISON: None. EXAM PARAMETERS: NUMBER OF VIEWS: Two view. TECHNIQUE: AP radiographic images acquired of the right and left knee. LIMITATIONS: None. FINDINGS: MINERALIZATION: Normal. BONES: No acute fracture or dislocation. No worrisome bone lesions. JOINTS: No significant effusion. SOFT TISSUES: No significant soft tissue swelling. No radiopaque foreign body. OTHER: No other significant finding. IMPRESSION: NO FRACTURE. TECHNICAL DOCUMENTATION: JOB ID: [id number] [employer]- All Rights Reserved Reading location - IP/workstation name: [email or web address]
--- NOTE | 2019-07-05 15:00 | RADIOLOGY REPORT (SQ) ---
EXAM DESCRIPTION: RIBS BILATERAL W/PA CHEST COMPLETED DATE/TIME: 07/05/2019 2:30 pm REASON FOR STUDY: FALL W10.8XXA FALL (ON) (FROM) OTHER STAIRS AND STEPS, INITIAL EN COMPARISON: 08/18/2017 NUMBER OF VIEWS: Seven views. TECHNIQUE: Images acquired of the right and left ribs in the area of focal concern. LIMITATIONS: None. FINDINGS: RIBS: No acute displaced fracture. No worrisome bone lesions. LUNGS: Limited exam. No obvious pneumothorax. No pleural effusion. OTHER: No other significant finding. IMPRESSION: NO ACUTE DISPLACED RIB FRACTURE. COMMENT: SITE OF TRAUMA/COMPLAINT MARKED/STAMP COMPLETED: YES. TECHNICAL DOCUMENTATION: JOB ID: [id number] [id number] 2010 [id number]- All Rights Reserved Reading location - IP/workstation name: [email or web address]
== END ==
LOC: OD 14:08
PROVIDERS: ATTEND Internal Medicine
DX: T14.90XA Injury, unspecified, initial encounter (principal); W10.8XXA Fall (on) (from) other stairs and steps, initial encounter
CPT/HCPCS: 71111; 73565